=== PATIENT | male | born 1935 | race Caucasian/White ===

== ENCOUNTER 2018-06-05 10:47 | Inpatient (IN) | payer MEDICARE, MEDICAID ==
[~2018-06-05] VITALS: Ht 165.1 cm; Wt 68.0 kg
[2018-06-05] MEDS ORDERED: ALBUTEROL (0.083%) 2.5MG/3ML NEB HHN STA (11:16)
[2018-06-05] MEDS ORDERED: IPRATROPIUM BROMIDE (0.02%) 0.5MG/2.5ML NEB HHN STA (11:16)
[2018-06-05 11:34] LABS: CHLORIDE 102 mEq/L (98-107)
[2018-06-05 11:38] LABS: BASOPHILS % 0.3 % (0.0-2.0); EOSINOPHILS % 0.9 % (0.0-5.0); HEMATOCRIT. 41.3 % (42.0-52.0); HEMOGLOBIN. 13.2 g/dL (14.0-18.0); LYMPHOCYTES % 21.5 % (20.0-50.0); MEAN CORPUSCULAR HEMOGLOBIN 27.6 pg (28.0-32.0); MEAN CORPUSCULAR VOLUME 86.1 fL (80.0-94.0); MEAN PLATELET VOLUME 7.7 fl (7.4-10.4); MONOCYTES % 11.2 % (2.0-8.0); NEUTROPHILS % 66.1 % (40.0-76.0); PLATELET 316 x1000/uL (130-400); RED BLOOD CELL COUNT 4.79 mill/uL (4.7-6.1)
[2018-06-05 12:11] LABS: BG BASE EXCESS 5.3 mmol/L (-2.0-2.0); BG CARBOXYHEMOGLOBIN 1.4 % (0.5-1.5); BG DEOXYHEMOGLOBIN 4.3 % (0.0-5.0); BG FRACTION INSPIRED OXYGEN 28; BG HCO3 ACT 31.1 mmol/L (22.0-26.0); BG METHEMOGLOBIN 0.1 % (0.0-1.5); BG OXYGEN SATURATION 95.6 % (92.0-98.5); BG OXYHEMOGLOBIN 94.2 % (94.0-97.0); BG PCO2 50.4 mmHg (35.0-45.0); BG PH 7.408 (7.350-7.450); BG PO2 75.5 mmHg (75.0-100.0); BG SAMPLE SITE RIGHT RADIAL; BG TOTAL HEMOGLOBIN 13.6 g/dL (12.0-18.0); BG VENT MODE NASAL CANNULA
[2018-06-05] MEDS ORDERED: IOHEXOL-350 100 ML BOTTLE ONE (12:58)
[2018-06-05] MEDS ORDERED: ONDANSETRON HCL 4MG/2ML INJ IV PRN (15:15)
[2018-06-05] MEDS ORDERED: ACETAMINOPHEN 325MG TABLET PO PRN (15:15)
[2018-06-05] MEDS ORDERED: CLONIDINE 0.1MG TABLET PO PRN (15:15)
[2018-06-05] MEDS ORDERED: ALBUTEROL (0.5%) 2.5MG/0.5ML NEB HHN PRN (16:15)
[2018-06-05 17:00] VITALS: BP 166/78
[2018-06-05] MEDS: METHYLPREDNISOLONE SOD SUCC 40 MG/ML VIAL IV SCH (17:54)
[2018-06-05] MEDS: ENOXAPARIN 40MG/0.4ML SYR SUBCUT SCH (17:54)
[2018-06-05] MEDS ORDERED: LEVOFLOXACIN 500MG PREMIX 100 ML IV SCH (18:00)
[2018-06-05 18:19] VITALS: BP 166/74
[2018-06-05 19:41] LABS: CLARITY URINE CLEAR (CLEAR); COLOR URINE YELLOW (YELLOW); KETONES URINE NEGATIVE (NEGATIVE); LEUKOCYTE ESTERASE URINE NEGATIVE (NEGATIVE); NITRITE URINE NEGATIVE (NEGATIVE); OCCULT BLOOD URINE TRACE (NEGATIVE); PROTEIN URINE NEGATIVE (NEGATIVE); SPECIFIC GRAVITY URINE 1.061 (1.005-1.030); UROBILINOGEN URINE 0.2 E.U./dL (0.2-1.0)
[2018-06-05 19:51] LABS: *AMPHETAMINES SCREEN URINE NEGATIVE (NEGATIVE); *BARBITURATES SCREEN URINE NEGATIVE (NEGATIVE); *BENZODIAZEPINES SCREEN URINE NEGATIVE (NEGATIVE); *COCAINE SCREEN URINE NEGATIVE (NEGATIVE); CANNABINOID URINE SCREEN NEGATIVE (NEGATIVE); METHADONE URINE SCREEN NEGATIVE (NEGATIVE); OPIATES URINE SCREEN NEGATIVE (NEGATIVE)
[2018-06-05 19:52] LABS: PHENCYCLIDINE URINE SCREEN NEGATIVE (NEGATIVE)
[2018-06-05 20:42] VITALS: BP 138/82
[2018-06-05] MEDS: BUDESONIDE 0.5MG/2ML NEB HHN SCH (21:37)
[2018-06-05] MEDS: IPRATROPIUM/ALBUTEROL 0.5-3(2.5)MG/3ML NEB HHN SCH (21:39)
[2018-06-06] VITALS (8 sets, daily range): BP systolic 117–138; BP diastolic 50–69
[2018-06-06] MEDS: METHYLPREDNISOLONE SOD SUCC 40 MG/ML VIAL IV SCH ×2 (01:25→09:18)
[2018-06-06 06:27] LABS: HEMOGLOBIN. 12.7 g/dL (14.0-18.0); MEAN CORPUSCULAR HEMOGLOBIN 27.9 pg (28.0-32.0); MEAN CORPUSCULAR VOLUME 86.1 fL (80.0-94.0); MEAN PLATELET VOLUME 7.7 fl (7.4-10.4); PLATELET 294 x1000/uL (130-400); RED BLOOD CELL COUNT 4.53 mill/uL (4.7-6.1); RED CELL DISTRIBUTION WIDTH 13.8 % (11.6-14.6)
[2018-06-06 06:32] LABS: CHLORIDE 101 mEq/L (98-107)
[2018-06-06] MEDS: BUDESONIDE 0.5MG/2ML NEB HHN SCH ×2 (08:26→20:25)
[2018-06-06] MEDS: IPRATROPIUM/ALBUTEROL 0.5-3(2.5)MG/3ML NEB HHN SCH ×4 (08:29→20:25)
[2018-06-06] MEDS: ENOXAPARIN 40MG/0.4ML SYR SUBCUT SCH (09:21)
[2018-06-06 16:32] LABS: PLATELET ESTIMATE NORMAL
[2018-06-06 17:35] LABS: INR 1.2; PROTHROMBIN TIME 11.8 sec (9.1-11.1)
[2018-06-06] MEDS: PREDNISONE 20MG TABLET PO SCH (18:21)
[2018-06-06] MEDS: LEVOFLOXACIN 500MG PREMIX 100 ML IV SCH (18:22)
[2018-06-07] VITALS: BP 134/56
[2018-06-07 04:00] VITALS: BP 101/59
[2018-06-07 08:00] VITALS: BP 117/65
[2018-06-07] MEDS: BUDESONIDE 0.5MG/2ML NEB HHN SCH ×2 (08:05→22:10)
[2018-06-07] MEDS: IPRATROPIUM/ALBUTEROL 0.5-3(2.5)MG/3ML NEB HHN SCH ×3 (08:07→16:04)
[2018-06-07] MEDS: PREDNISONE 20MG TABLET PO SCH ×2 (09:14→17:15)
[2018-06-07 12:00] VITALS: BP 116/62
[2018-06-07] MEDS ORDERED: VALS80TA30 PO (15:45)
[2018-06-07] MEDS ORDERED: ASPI-1158 MT (15:46)
[2018-06-07] MEDS ORDERED: NAPR-1176 MT (15:47)
[2018-06-07] MEDS ORDERED: LOSA50TA20 MT (15:48)
[2018-06-07] MEDS ORDERED: LORA10TA7 PO (15:49)
[2018-06-07] MEDS ORDERED: BUPR300T54 MT (15:50)
[2018-06-07] MEDS ORDERED: VIT1TABL86 MT (15:54)
[2018-06-07 16:00] VITALS: BP 117/54
[2018-06-07] MEDS: LEVOFLOXACIN 500MG PREMIX 100 ML IV SCH (17:17)
[2018-06-07 20:00] VITALS: BP 129/58
[2018-06-08] VITALS (8 sets, daily range): BP systolic 108–131; BP diastolic 55–78
[2018-06-08] MEDS: BUDESONIDE 0.5MG/2ML NEB HHN SCH ×2 (08:15→20:40)
[2018-06-08] MEDS: IPRATROPIUM/ALBUTEROL 0.5-3(2.5)MG/3ML NEB HHN SCH ×5 (08:15→20:40)
[2018-06-08] MEDS: PREDNISONE 20MG TABLET PO SCH ×2 (10:33→17:16)
[2018-06-08] MEDS: LEVOFLOXACIN 500MG PREMIX 100 ML IV SCH (17:16)
[2018-06-08] MEDS ORDERED: BUDESONIDE 0.5MG/2ML NEB ONE (20:30)
[2018-06-09] VITALS: BP 130/70
[2018-06-09] MEDS: ACETYLCYSTEINE 100MG/ML 10% VIAL 4ML INH SCH ×3 (00:25→09:00)
[2018-06-09] MEDS: IPRATROPIUM/ALBUTEROL 0.5-3(2.5)MG/3ML NEB HHN PRN ×2 (00:26→09:00)
[2018-06-09 04:00] VITALS: BP 130/61
[2018-06-09 07:32] LABS: HEMATOCRIT. 38.8 % (42.0-52.0); HEMOGLOBIN. 12.6 g/dL (14.0-18.0); MEAN CORPUSCULAR HEMOGLOBIN 28.1 pg (28.0-32.0); MEAN CORPUSCULAR VOLUME 86.4 fL (80.0-94.0); MEAN PLATELET VOLUME 7.8 fl (7.4-10.4); PLATELET 312 x1000/uL (130-400); RED BLOOD CELL COUNT 4.49 mill/uL (4.7-6.1); RED CELL DISTRIBUTION WIDTH 14.3 % (11.6-14.6)
[2018-06-09 07:53] LABS: CHLORIDE 102 mEq/L (98-107)
[2018-06-09 08:00] VITALS: BP 137/92
[2018-06-09] MEDS: PREDNISONE 20MG TABLET PO SCH (08:15)
[2018-06-09 12:00] VITALS: BP 124/64
[2018-06-09] MEDS: IPRATROPIUM/ALBUTEROL 0.5-3(2.5)MG/3ML NEB HHN SCH (12:42)
[2018-06-09] MEDS ORDERED: GUAI600T26 MT (13:43)
[2018-06-09] MEDS ORDERED: P20 MT (13:43)
[2018-06-09] MEDS ORDERED: LEVO500T2 MT (13:43)
[2018-06-09 13:49] VITALS: BP 124/64
[2018-06-09 16:02] LABS: PLATELET ESTIMATE NORMAL
== END 2018-06-09 14:40 | disposition home or self-care (01) | DRG 720 ==
LOC: ER 10:47 → 6WST 13:44 → EDBEDREQ 13:47 → EDBEDREQTM 13:47 → ENRESERV 14:06
PROVIDERS: ADMIT Internal Medicine; ATTEND Internal Medicine
DX: A41.9 Sepsis, unspecified organism (principal); J96.21 Acute and chronic respiratory failure with hypoxia; E43 Unspecified severe protein-calorie malnutrition; J15.1 Pneumonia due to Pseudomonas; E87.2 Acidosis; J44.0 Chronic obstructive pulmonary disease with (acute) lower respiratory infection; D64.9 Anemia, unspecified; Z99.81 Dependence on supplemental oxygen; J44.1 Chronic obstructive pulmonary disease with (acute) exacerbation; R91.8 Other nonspecific abnormal finding of lung field; F17.210 Nicotine dependence, cigarettes, uncomplicated; I10 Essential (primary) hypertension; Z85.07 Personal history of malignant neoplasm of pancreas; Z87.01 Personal history of pneumonia (recurrent); Z68.25 Body mass index [BMI] 25.0-25.9, adult
CPT/HCPCS: 36415; 36600; 71045; 71275; 80048; 80305; 82375; 82805; 83880; 84484; 87070; 87077; 87186; 93005; 94640; 99285; J1650; J1956; J2920; J7512; J7608; J7611; J7620; J7626; Q9967

== ENCOUNTER 2018-06-25 12:26 | Inpatient (IN) | payer MEDICARE, MEDICAID ==
[~2018-06-25] VITALS: Ht 165.1 cm; Wt 69.9 kg
[~2018-06-25 12:26] MED LIST: BUPR300T54 MT; GUAI600T26 MT; LEVO500T2 MT; LOSA50TA20 MT; NAPR-1176 MT; P20 MT; VALS80TA30 PO; VIT1TABL86 MT
[2018-06-25] MEDS ORDERED: SODIUM CHLORIDE 0.9% 1,000 ML IV ONE (13:15)
[2018-06-25 13:43] LABS: BASOPHILS % 0.5 % (0.0-2.0); EOSINOPHILS % 1.7 % (0.0-5.0); HEMATOCRIT. 34.9 % (42.0-52.0); HEMOGLOBIN. 11.3 g/dL (14.0-18.0); LYMPHOCYTES % 15.5 % (20.0-50.0); MEAN CORPUSCULAR HEMOGLOBIN 27.7 pg (28.0-32.0); MEAN CORPUSCULAR VOLUME 85.2 fL (80.0-94.0); MEAN PLATELET VOLUME 7.4 fl (7.4-10.4); MONOCYTES % 10.3 % (2.0-8.0); PLATELET 261 x1000/uL (130-400); RED BLOOD CELL COUNT 4.09 mill/uL (4.7-6.1); RED CELL DISTRIBUTION WIDTH 14.5 % (11.6-14.6)
[2018-06-25 13:47] LABS: CHLORIDE 103 mEq/L (98-107); INR 1.1; PROTHROMBIN TIME 11.5 sec (9.1-11.1)
[2018-06-25 15:50] VITALS: BP 133/72
[2018-06-25] MEDS ORDERED: ACETAMINOPHEN 325MG TABLET PO PRN (16:15)
[2018-06-25] MEDS ORDERED: ONDANSETRON HCL 4MG/2ML INJ IV PRN (16:15)
[2018-06-25] MEDS ORDERED: HYDROMORPHONE HCL/PF 2MG/ML CPJ IV PRN (16:15)
[2018-06-25] MEDS ORDERED: IPRATROPIUM/ALBUTEROL 0.5-3(2.5)MG/3ML NEB INH PRN (16:15)
[2018-06-25] MEDS ORDERED: LORAZEPAM 2MG/ML CPJ IV PRN (16:30)
[2018-06-25 18:00] LABS: CREATINE KINASE 12 IU/L (39-308)
[2018-06-25] MEDS: DEXT 5%/0.45% NACL 1000ML 1,000 ML IV SCH (19:25)
[2018-06-25 20:00] VITALS: BP 106/56
[2018-06-25] MEDS: IPRATROPIUM/ALBUTEROL 0.5-3(2.5)MG/3ML NEB HHN SCH (21:18)
[2018-06-26] VITALS (17 sets, daily range): BP systolic 84–125; BP diastolic 47–70
[2018-06-26] MEDS: IPRATROPIUM/ALBUTEROL 0.5-3(2.5)MG/3ML NEB HHN SCH ×5 (00:49→15:17)
[2018-06-26] MEDS: DEXT 5%/0.45% NACL 1000ML 1,000 ML IV SCH ×2 (06:34→23:23)
[2018-06-26 06:41] LABS: BASOPHILS % 0.3 % (0.0-2.0); EOSINOPHILS % 1.9 % (0.0-5.0); HEMATOCRIT. 33.9 % (42.0-52.0); LYMPHOCYTES % 21.5 % (20.0-50.0); MEAN CORPUSCULAR HEMOGLOBIN 27.7 pg (28.0-32.0); MEAN CORPUSCULAR VOLUME 85.6 fL (80.0-94.0); MEAN PLATELET VOLUME 7.5 fl (7.4-10.4); MONOCYTES % 11.3 % (2.0-8.0); PLATELET 249 x1000/uL (130-400); RED BLOOD CELL COUNT 3.95 mill/uL (4.7-6.1); RED CELL DISTRIBUTION WIDTH 14.1 % (11.6-14.6)
[2018-06-26 06:55] LABS: CHLORIDE 104 mEq/L (98-107)
[2018-06-26] MEDS: BUPROPION HCL 150MG SR TABLET PO SCH (08:58)
[2018-06-26] MEDS: LOSARTAN POTASSIUM 50 MG TABLET PO SCH (08:58)
[2018-06-26] MEDS ORDERED: SKIN ADHESIVE 0.7 GM EA TOP ONE (11:58)
[2018-06-26] MEDS ORDERED: TETRACAINE/BENZOCAINE/BUTAMBEN 20 GM SPRAY MM ONE (12:59)
[2018-06-26] MEDS ORDERED: FENTANYL CITRATE/PF 50MCG/ML 2ML VIAL ONE (13:01)
[2018-06-26] MEDS ORDERED: GLYCOPYRROLATE 0.2 MG/ML 2ML VIAL ONE ×2 (13:01→14:11)
[2018-06-26] MEDS ORDERED: ROCURONIUM BROMIDE 10MG/ML VIAL 5ML IV ONE (13:01)
[2018-06-26] MEDS ORDERED: PROPOFOL 200MG/20ML VIAL IV ONE (13:01)
[2018-06-26] MEDS ORDERED: NEOSTIGMINE METHYLSULFATE 1MG/ML 10 ML VIAL ONE (13:01)
[2018-06-26] MEDS ORDERED: MIDAZOLAM HCL 2 MG/2 ML VIAL ONE (13:01)
[2018-06-26] MEDS ORDERED: DEXAMETHASONE 4MG/ML 1ML VIAL ONE (13:09)
[2018-06-26] MEDS ORDERED: CLINDAMYCIN 600 MG in DEXTROSE 5% WATER 50 ML IV SCH ×4 (13:15)
[2018-06-26] MEDS ORDERED: ONDANSETRON HCL 4MG/2ML INJ ONE (13:17)
[2018-06-26] MEDS ORDERED: HYDROMORPHONE HCL/PF 2MG/ML CPJ IV PRN (13:45)
[2018-06-26] MEDS ORDERED: ONDANSETRON HCL 4MG/2ML INJ IV PRN (13:45)
[2018-06-26] MEDS ORDERED: MEPERIDINE HCL/PF 25MG/ML CPJ IV PRN (13:45)
[2018-06-26] MEDS ORDERED: LABETALOL HCL 20MG/4ML CARPUJECT IV PRN (13:45)
[2018-06-26] MEDS ORDERED: ALBUTEROL (0.083%) 2.5MG/3ML NEB HHN NR (14:30)
[2018-06-26 15:43] LABS: BASOPHILS % 0.2 % (0.0-2.0); HEMATOCRIT. 39.8 % (42.0-52.0); HEMOGLOBIN. 12.6 g/dL (14.0-18.0); LYMPHOCYTES % 17.2 % (20.0-50.0); MEAN CORPUSCULAR HEMOGLOBIN 27.5 pg (28.0-32.0); MEAN CORPUSCULAR VOLUME 86.8 fL (80.0-94.0); MEAN PLATELET VOLUME 7.3 fl (7.4-10.4); MONOCYTES % 5.1 % (2.0-8.0); NEUTROPHILS % 76.5 % (40.0-76.0); PLATELET 281 x1000/uL (130-400); RED BLOOD CELL COUNT 4.59 mill/uL (4.7-6.1); RED CELL DISTRIBUTION WIDTH 14.7 % (11.6-14.6)
[2018-06-26] MEDS ORDERED: HYDROCODONE/ACETAMINOPHEN 5/325MG TABLET PO PRN (16:00)
[2018-06-26] MEDS ORDERED: PROPOFOL 10MG/ML 100ML 100 ML IV PRN (17:15)
[2018-06-26 17:33] LABS: BG BASE EXCESS 0.2 mmol/L (-2.0-2.0); BG CARBOXYHEMOGLOBIN 0.8 % (0.5-1.5); BG DEOXYHEMOGLOBIN 0.1 % (0.0-5.0); BG FRACTION INSPIRED OXYGEN 100; BG HCO3 ACT 26.8 mmol/L (22.0-26.0); BG METHEMOGLOBIN 0.5 % (0.0-1.5); BG OXYGEN SATURATION 99.9 % (92.0-98.5); BG OXYHEMOGLOBIN 98.6 % (94.0-97.0); BG PCO2 51.6 mmHg (35.0-45.0); BG PH 7.333 (7.350-7.450); BG PO2 407.7 mmHg (75.0-100.0); BG SAMPLE SITE RIGHT RADIAL; BG TIDAL VOLUME(mL) 500 mL; BG TOTAL HEMOGLOBIN 12.6 g/dL (12.0-18.0); BG VENT MODE VENT - A/C; BG VENT RATE 10 set
[2018-06-26] MEDS ORDERED: LORAZEPAM 2MG/ML CPJ IV NR (20:15)
[2018-06-27] VITALS (80 sets, daily range): BP systolic 89–143; BP diastolic 17–89
[2018-06-27] MEDS: IPRATROPIUM/ALBUTEROL 0.5-3(2.5)MG/3ML NEB HHN SCH ×6 (00:38→20:21)
[2018-06-27 05:55] LABS: HEMATOCRIT. 34.4 % (42.0-52.0); HEMOGLOBIN. 11.1 g/dL (14.0-18.0); LYMPHOCYTES % 9.9 % (20.0-50.0); MEAN CORPUSCULAR HEMOGLOBIN 27.6 pg (28.0-32.0); MEAN CORPUSCULAR VOLUME 85.6 fL (80.0-94.0); MEAN PLATELET VOLUME 7.7 fl (7.4-10.4); MONOCYTES % 5.6 % (2.0-8.0); NEUTROPHILS % 84.5 % (40.0-76.0); PLATELET 264 x1000/uL (130-400); RED BLOOD CELL COUNT 4.02 mill/uL (4.7-6.1); RED CELL DISTRIBUTION WIDTH 14.4 % (11.6-14.6)
[2018-06-27 06:13] LABS: CHLORIDE 104 mEq/L (98-107)
[2018-06-27 08:39] LABS: BG BASE EXCESS 1.9 mmol/L (-2.0-2.0); BG DEOXYHEMOGLOBIN 1.6 % (0.0-5.0); BG FRACTION INSPIRED OXYGEN 40; BG HCO3 ACT 27.7 mmol/L (22.0-26.0); BG METHEMOGLOBIN 0.4 % (0.0-1.5); BG OXYGEN SATURATION 98.4 % (92.0-98.5); BG PH 7.379 (7.350-7.450); BG PO2 110.5 mmHg (75.0-100.0); BG SAMPLE SITE RIGHT RADIAL; BG TIDAL VOLUME(mL) 500 mL; BG TOTAL HEMOGLOBIN 13.5 g/dL (12.0-18.0); BG VENT MODE VENT - A/C; BG VENT RATE 12 set
[2018-06-27] MEDS: LOSARTAN POTASSIUM 50 MG TABLET PO SCH (09:00)
[2018-06-27] MEDS: BUPROPION HCL 150MG SR TABLET PO SCH (09:00)
[2018-06-27] MEDS: DEXT 5%/0.45% NACL 1000ML 1,000 ML IV SCH ×2 (09:31→20:16)
[2018-06-27 11:44] LABS: BG BASE EXCESS 3.6 mmol/L (-2.0-2.0); BG CARBOXYHEMOGLOBIN 0.9 % (0.5-1.5); BG DEOXYHEMOGLOBIN 3.4 % (0.0-5.0); BG FRACTION INSPIRED OXYGEN 35; BG HCO3 ACT 29.3 mmol/L (22.0-26.0); BG METHEMOGLOBIN 0.3 % (0.0-1.5); BG OXYGEN SATURATION 96.6 % (92.0-98.5); BG OXYHEMOGLOBIN 95.4 % (94.0-97.0); BG PH 7.394 (7.350-7.450); BG PO2 84.5 mmHg (75.0-100.0); BG PRESSURE SUPPORT 8; BG SAMPLE SITE RIGHT RADIAL; BG TOTAL HEMOGLOBIN 12.3 g/dL (12.0-18.0); BG VENT MODE VENT - CPAP
[2018-06-27] MEDS ORDERED: RACEPINEPHRINE 2.25% 0.5ML NEB VIAL ONE (12:22)
[2018-06-27] MEDS ORDERED: METHYLPREDNISOLONE SOD SUCC 125 MG/2 ML VIAL IV SCH (14:00)
[2018-06-27] MEDS: RACEPINEPHRINE 2.25% 0.5ML NEB VIAL HHN SCH ×2 (14:31→17:20)
[2018-06-27] MEDS: RACEPINEPHRINE 2.25% 0.5ML NEB VIAL HHN PRN (20:22)
[2018-06-28] VITALS (40 sets, daily range): BP systolic 114–143; BP diastolic 58–86
[2018-06-28] MEDS: IPRATROPIUM/ALBUTEROL 0.5-3(2.5)MG/3ML NEB HHN SCH ×5 (00:30→16:06)
[2018-06-28] MEDS: RACEPINEPHRINE 2.25% 0.5ML NEB VIAL HHN PRN ×3 (00:46→14:18)
[2018-06-28] MEDS: DEXT 5%/0.45% NACL 1000ML 1,000 ML IV SCH (05:45)
[2018-06-28] MEDS: LOSARTAN POTASSIUM 50 MG TABLET PO SCH (09:39)
[2018-06-28] MEDS: BUPROPION HCL 150MG SR TABLET PO SCH (09:39)
[2018-06-28] MEDS ORDERED: THROAT LOZENGES-BENZOCAINE/MENTH/CETYLPYRD CL LOZENGES MM PRN (10:15)
[2018-06-28] MEDS ORDERED: SODIUM BICARBONATE 4% (2.4MEQ) 5ML VIAL IV ONE (12:10)
[2018-06-28] MEDS ORDERED: LIDOCAINE HCL 1% 20ML VIAL (Pyxis) INJ ONE (12:11)
[2018-06-28] MEDS ORDERED: DOCUSATE SODIUM 100MG CAPSULE PO SCH (17:00)
[2018-06-28] MEDS ORDERED: ALBU6.7H9 INH (18:38)
[2018-06-28] MEDS ORDERED: GUAI600T26 PO (18:39)
[2018-06-28] MEDS ORDERED: GUAIFENESIN 600MG ER TABLET PO SCH (21:00)
== END 2018-06-28 21:00 | disposition home or self-care (01) | DRG 952 ==
LOC: ER 12:26 → 7WST 13:04 → EDBEDREQTM 13:14 → EDBEDREQSVC 13:14 → EDBEDREQ 13:14 → ENRESERV 13:38 → MICUSO 06-26 20:40
PROVIDERS: ADMIT Internal Medicine Critical Care Medicine; ATTEND Internal Medicine Critical Care Medicine
PROC: 07B74ZX Excision of Thorax Lymphatic, Percutaneous Endoscopic Approach, Diagnostic (ICD-10-PCS; 2018-06-26)
PROC: 0BBC3ZX Excision of Right Upper Lung Lobe, Percutaneous Approach, Diagnostic (ICD-10-PCS; principal; 2018-06-28)
DX: C34.11 Malignant neoplasm of upper lobe, right bronchus or lung (principal); J96.20 Acute and chronic respiratory failure, unspecified whether with hypoxia or hypercapnia; E44.0 Moderate protein-calorie malnutrition; Z99.81 Dependence on supplemental oxygen; J98.4 Other disorders of lung; R59.0 Localized enlarged lymph nodes; I10 Essential (primary) hypertension; Z88.0 Allergy status to penicillin; Z79.899 Other long term (current) drug therapy; Z87.891 Personal history of nicotine dependence; Z87.01 Personal history of pneumonia (recurrent); Z68.25 Body mass index [BMI] 25.0-25.9, adult
CPT/HCPCS: 32405; 36415; 36600; 71045; 77012; 80048; 82375; 82550; 82805; 83735; 84100; 84478; 84484; 88305; 88331; 92610; 93005; 94002; 94003; 94640; 96360; 97162; 97530; 99285; J1100; J2060; J2250; J2405; J2704; J2710; J2930; J3010; J3490; J7030; J7060; J7620; A4315